=== PATIENT | female | born 1995 | race Caucasian/White ===

== ENCOUNTER 2021-04-08 10:03 | Inpatient (IN) ==
[2021-04-08] MEDS ORDERED: MEPERIDINE 50 MG/1 ML VIAL IV PRN (10:16)
[2021-04-08] MEDS ORDERED: ONDANSETRON 4 MG/2 ML VIAL IV PRN (10:16)
[2021-04-08] MEDS ORDERED: BUTORPHANOL 2 MG/ML VIAL IV PRN (10:16)
[2021-04-08] MEDS: LACTATED RINGERS 1,000 ML IV SCH ×2 (10:20→18:46)
[2021-04-08] MEDS ORDERED: OXYTOCIN/LR 20 UNIT/1,000 ML BAG IV SCH (10:30)
[2021-04-08] MEDS ORDERED: AMPICILLIN INJ 2,000 MG in SODIUM CHLORIDE 0.9% 100 ML IV ONE (10:42)
[2021-04-08 10:45] LABS: Basophils % 0.3 % (0.0-0.8); Eosinophils # 0.1 10*3/uL (0.0-0.87); Hematocrit 32.7 VOL% (35.7-47.0); Hemoglobin 10.5 GM/DL (12.0-16.0); Immature Granulocytes % 1.1 %; Immature Granulocytes Absolute 0.13 #; Lymphocytes # 1.7 10*3/uL (1.4-4.0); Lymphocytes % 15.2 % (21.3-54.2); Mean Corpuscular HGB Conc 32.1 GM/DL (32-36); Mean Corpuscular Volume 90.3 FL (87-102); Mean Platelet Volume 12.4 FL (9.6-12.0); Monocytes % 10.1 % (1.7-12.7); Neutrophils % 72.3 % (38.7-73.9); Platelet Count 165 T/CUMM (130-400); Red Blood Count 3.62 MC/CUMM (3.8-5.5); Red Cell Distribution Width 12.9 % (9.3-17.3); White Blood Count 11.4 T/CUMM (4-12)
[2021-04-08 11:07] LABS: Albumin 2.6 G/DL (3.4-5.0); Bilirubin,Total 0.6 MG/DL (0.2-1.0); Calcium 8.6 MG/DL (8.5-10.1); Osmolality,Calculated 275.4 MOS/KG (273-304); Potassium 3.5 MMOL/L (3.5-5.1); Total Protein 6.7 G/DL (6.4-8.2)
[2021-04-08 13:52] LABS: INR 0.9; Partial Thromboplastin Time 25.6 SECS (23.9-33.8)
[2021-04-08 13:56] LABS: Albumin 2.5 G/DL (3.4-5.0); Bilirubin,Direct 0.15 MG/DL (0.0-0.20); Bilirubin,Total 0.6 MG/DL (0.2-1.0); Calcium 8.5 MG/DL (8.5-10.1); Osmolality,Calculated 272.5 MOS/KG (273-304); Potassium 3.5 MMOL/L (3.5-5.1); Total Protein 6.3 G/DL (6.4-8.2); Uric Acid 4.2 MG/DL (2.6-6.0)
[2021-04-08] MEDS: AMPICILLIN INJ 1,000 MG in SODIUM CHLORIDE 0.9% 100 ML IV SCH ×3 (15:33→23:17)
[2021-04-08] MEDS ORDERED: diphenhydrAMINE 50 MG/1 ML VIAL IV PRN ×2 (15:47)
[2021-04-08] MEDS ORDERED: CITRIC ACID/SODIUM CITRATE 30 ML UDCUP PO ONE (15:47)
[2021-04-08] MEDS ORDERED: ePHEDrine 50 MG/ML VIAL IV PRN ×2 (15:47)
[2021-04-08] MEDS ORDERED: NALOXONE 0.4 MG/ML VIAL IV PRN (15:47)
[2021-04-08] MEDS ORDERED: FAMOTIDINE 20 MG/2 ML VIAL IV ONE (15:47)
[2021-04-08] MEDS ORDERED: fentaNYL 2 MCG/ROPIV 0.2% EPID 100 ML EPIDURAL SCH (16:00)
[2021-04-08 21:00] LABS: Bilirubin,Urine Negative (Negative); Blood, Urine Negative (Negative); Glucose,Urine (UA) Negative (Negative); Ketones,Urine Negative (Negative); Mucus,Urine Occasional /LPF (Occasional); Nitrite,Urine Negative (Negative); Protein,Urine Negative; Urine Appearance CLEAR (Clear); Urine Color Yellow (Yellow); Urine Specific Gravity 1.012 (1.001-1.035); Urine Urobilinogen < 2.0 EU/DL (0.2-1.0)
[2021-04-08 21:13] LABS: Protein/Creatinine Ratio,Urine 0.3 RATIO
[2021-04-09 00:48] LABS: Cord Arterial Blood HCO3 18.2 MMOL/L
[2021-04-09 00:50] LABS: Cord Venous Blood HCO3 20.6 MMOL/L; Cord Venous Blood PCO2 38.5 MMHG; Cord Venous Blood PO2 33.7
[2021-04-09] MEDS ORDERED: RHO(D) IMMUNE GLOBULIN 300 MCG SYRINGE IM ONE (00:52)
[2021-04-09] MEDS ORDERED: WITCH HAZEL PADS 100/JAR TOP PRN (00:52)
[2021-04-09] MEDS ORDERED: DIPH/TET/ACEL PERT BOOSTER VACCINE 0.5 ML VIAL IM ONE (00:52)
[2021-04-09] MEDS ORDERED: ONDANSETRON 4 MG/2 ML VIAL IV PRN (00:52)
[2021-04-09] MEDS ORDERED: OXYTOCIN/LR 20 UNIT/1,000 ML BAG IV ONE ×2 (00:52→01:13)
[2021-04-09] MEDS ORDERED: MEASLES/MUMPS/RUBELLA VACCINE 0.5 ML VIAL SUBCUT ONE (00:52)
[2021-04-09] MEDS ORDERED: oxyCODONE/ACETAMINOPHEN 5-325 MG TABLET PO PRN (00:52)
[2021-04-09] MEDS ORDERED: BISACODYL 10 MG SUPP RECTAL PRN (00:52)
[2021-04-09] MEDS ORDERED: ACETAMINOPHEN 325 MG TABLET PO PRN (00:52)
[2021-04-09] MEDS ORDERED: HYDROCORTISONE 2.5% RECTAL CREAM 30 GM TUBE TOP PRN (00:52)
[2021-04-09] MEDS ORDERED: LANOLIN 50% CREAM 0.3 OZ TUBE TOP PRN (00:52)
[2021-04-09] MEDS ORDERED: BENZOCAINE 20%/MENTHOL 0.5% SPRAY 56 GM CAN TOP PRN (00:52)
[2021-04-09] MEDS ORDERED: miSOPROStoL 200 MCG TABLET ONE (01:13)
[2021-04-09] MEDS ORDERED: TRANEXAMIC ACID 1,000 MG/10 ML VIAL ONE (01:13)
[2021-04-09] MEDS ORDERED: METHYLERGONOVINE 0.2 MG/1 ML AMP ONE (01:13)
[2021-04-09] MEDS ORDERED: CARBOPROST TROMETHAMINE 250 MCG/ML AMP IM ONE (01:14)
[2021-04-09 01:32] LABS: Basophils # 0.1 10*3/uL (0.0-0.2); Basophils % 0.2 % (0.0-0.8); Hemoglobin 8.6 GM/DL (12.0-16.0); Immature Granulocytes % 0.8 %; Immature Granulocytes Absolute 0.21 #; Lymphocytes # 1.2 10*3/uL (1.4-4.0); Lymphocytes % 4.6 % (21.3-54.2); Mean Corpuscular HGB Conc 31.9 GM/DL (32-36); Mean Corpuscular Volume 91.5 FL (87-102); Monocytes % 5.1 % (1.7-12.7); Neutrophils % 89.3 % (38.7-73.9); Platelet Count 192 T/CUMM (130-400); Red Blood Count 2.95 MC/CUMM (3.8-5.5); Red Cell Distribution Width 12.9 % (9.3-17.3); White Blood Count 25.4 T/CUMM (4-12)
[2021-04-09 02:03] LABS: Band Neutrophils 1 % (0-10); Lymphocytes 6 % (20-55); Segmented Neutrophils 88 % (50-85)
[2021-04-09 02:04] LABS: Hypochromasia 1+; Microcytosis 1+; Platelet Estimate Normal
[2021-04-09 02:05] LABS: Total Cells Counted 100
[2021-04-09] MEDS: METHYLERGONOVINE 0.2 MG TABLET PO SCH ×3 (05:35→17:55)
[2021-04-09] MEDS: IBUPROFEN 800 MG TABLET PO PRN ×2 (05:35→20:05)
[2021-04-09] MEDS: oxyCODONE/ACETAMINOPHEN 5-325 MG TABLET PO PRN (06:59)
[2021-04-09 07:32] LABS: Basophils % 0.1 % (0.0-0.8); Hematocrit 20.8 VOL% (35.7-47.0); Immature Granulocytes % 1.1 %; Immature Granulocytes Absolute 0.24 #; Lymphocytes # 1.2 10*3/uL (1.4-4.0); Lymphocytes % 5.9 % (21.3-54.2); Mean Corpuscular HGB Conc 32.7 GM/DL (32-36); Mean Corpuscular Volume 89.7 FL (87-102); Mean Platelet Volume 11.6 FL (9.6-12.0); Monocytes % 7.6 % (1.7-12.7); Neutrophils % 85.3 % (38.7-73.9); Red Blood Count 2.32 MC/CUMM (3.8-5.5); Red Cell Distribution Width 12.9 % (9.3-17.3); White Blood Count 21.1 T/CUMM (4-12)
[2021-04-09 07:35] LABS: Hemoglobin 6.8 GM/DL (12.0-16.0)
[2021-04-09 07:36] LABS: Platelet Count 153 T/CUMM (130-400)
[2021-04-09] MEDS ORDERED: SODIUM CHLORIDE 0.9% 1,000 ML IV PRN (07:52)
[2021-04-09 08:29] LABS: Lymphocytes 6 % (20-55); Platelet Estimate Adequate; Segmented Neutrophils 91 % (50-85); Total Cells Counted 100
[2021-04-09 08:30] LABS: Hypochromasia Slight; Ovalocytes Few
[2021-04-09 10:46] LABS: Basophils % 0.1 % (0.0-0.8); Hemoglobin 6.5 GM/DL (12.0-16.0); Immature Granulocytes % 0.7 %; Immature Granulocytes Absolute 0.13 #; Lymphocytes # 1.2 10*3/uL (1.4-4.0); Lymphocytes % 6.7 % (21.3-54.2); Mean Corpuscular HGB Conc 32.5 GM/DL (32-36); Mean Corpuscular Volume 90.5 FL (87-102); Mean Platelet Volume 11.9 FL (9.6-12.0); Monocytes % 7.8 % (1.7-12.7); Neutrophils % 84.7 % (38.7-73.9); Platelet Count 135 T/CUMM (130-400); Red Blood Count 2.21 MC/CUMM (3.8-5.5); White Blood Count 17.9 T/CUMM (4-12)
[2021-04-09] MEDS: FERROUS SULFATE 325 MG TABLET PO SCH ×3 (10:46→21:30)
[2021-04-09] MEDS: DOCUSATE SODIUM 100 MG CAPSULE PO SCH ×2 (10:46→21:30)
[2021-04-09 11:42] LABS: Anisocytosis 1+; Macrocytosis Slight; Spherocytes Few
[2021-04-10] MEDS: METHYLERGONOVINE 0.2 MG TABLET PO SCH (00:16)
[2021-04-10] MEDS: oxyCODONE/ACETAMINOPHEN 5-325 MG TABLET PO PRN ×2 (02:17→09:27)
[2021-04-10] MEDS: IBUPROFEN 800 MG TABLET PO PRN ×2 (02:17→09:29)
[2021-04-10 04:55] VITALS: BP 125/60
[2021-04-10 05:35] LABS: Basophils % 0.1 % (0.0-0.8); Eosinophils # 0.1 10*3/uL (0.0-0.87); Eosinophils % 0.7 % (0.00-10.9); Hematocrit 24.9 VOL% (35.7-47.0); Hemoglobin 8.1 GM/DL (12.0-16.0); Immature Granulocytes % 1.9 %; Lymphocytes # 2.3 10*3/uL (1.4-4.0); Lymphocytes % 14.6 % (21.3-54.2); Mean Corpuscular HGB Conc 32.5 GM/DL (32-36); Mean Corpuscular Volume 89.2 FL (87-102); Monocytes % 8.1 % (1.7-12.7); Neutrophils % 74.6 % (38.7-73.9); Platelet Count 145 T/CUMM (130-400); Red Blood Count 2.79 MC/CUMM (3.8-5.5); Red Cell Distribution Width 14.3 % (9.3-17.3); White Blood Count 15.9 T/CUMM (4-12)
[2021-04-10] MEDS: DOCUSATE SODIUM 100 MG CAPSULE PO SCH (09:14)
[2021-04-10] MEDS: FERROUS SULFATE 325 MG TABLET PO SCH (09:18)
== END 2021-04-10 13:00 | disposition home or self-care (01) | DRG 542 ==
LOC: N.LD 10:03 → N.OB 04-09 05:27
PROVIDERS: ADMIT Obstetrics & Gynecology; ATTEND Obstetrics & Gynecology